=== PATIENT | female | born 1950 | race Caucasian/White ===

== ENCOUNTER 2025-10-26 09:32 | Outpatient (AMB) | payer OTHER, SELFPAY ==
[2025-10-26 09:37] VITALS: BMI 28.0
--- NOTE | 2025-10-26 09:37 | A.PHYSOV_ITS ---
Vital Signs 10/26/25 09:37 Height 5 ft 4 in Weight 163 lb BMI 28.0 Intake Visit Reasons: Follow up after injection 09/01/25 Intake Note: Patient is a 73 year old female in office today for a follow up for lumbar mri results. Conference Coordinator Required: No Allergies adhesive Allergy (Unknown, Verified 10/26/25 09:39) Unknown lactose Allergy (Unknown, Verified 10/26/25 09:39) Unknown monosodium glutamate Allergy (Unknown, Verified 10/26/25 09:39) Unknown Penicillins Allergy (Unknown, Verified 10/26/25 09:39) Unknown HPI Comments Details: History of Present Illness The patient is a 75 year old female presenting for follow-up of chronic low back pain after a recent injection provided minimal relief. She underwent L5-S1 ABENA on 09/01/2025. 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 However, the pain had returned by the following Thursday. The patient's pain is located in the low back and does not radiate into her legs or buttocks. The pain is exacerbated by bending forward and activities such as shoveling snow, prolonged standing, and walking. She has a history of sciatica which was treated by a chiropractor but denies current sciatic symptoms. Her medical history is significant for moderate to severe spinal stenosis and arthritis in her back. She has also had success with a prednisone taper in the past for her pain. She recently underwent successful bilateral cataract surgery and now reports 20/20 vision. Patient would like to consider further treatment options. Pain Description - Location: Low back, with tenderness to palpation more pronounced on the left side. - Radiation: The patient denies any radiation of pain into the legs or buttocks and denies any sciatic symptoms. - Exacerbating factors: Pain is worsened by activity, including shoveling snow, bending forward, prolonged standing, walking, and lifting heavy objects like a turkey. - Relieving factors: Pain is improved with rest. - Prior treatments: A recent central injection provided approximately 50% relief for about three days. - Impact on function: Pain interferes with her ability to stand for long periods to cook, walk for exercise, and go shopping. Results - MRI: The patient's MRI shows moderate to severe spinal stenosis, disc issues, and arthritis. [facility] Social History Alcohol intake: current Alcohol intake frequency: holidays/special occasions only Use of substances other than those prescribed or required for medical reasons: No Current occupational status: retired Review of Systems Narrative Review of Systems - Musculoskeletal: Reports low back pain that is worse with activity and forward flexion. - Neurological: Denies pain radiation to her legs or buttocks. - Eyes: Reports successful bilateral cataract surgery with 20/20 vision. - Denies current eye pain but notes one eye is not as comfortable as the other. Physical Exam Exam Exam: Physical Exam Lumbar Spine: Examination of her lumbar spine, there is no visible swelling or deformity. She is tender to lower lumbar facets. She is otherwise nontender. Full range of motion of the lumbar spine. She does have an increase in pain with facet loading. Special Tests: Lhermittes sign was negative Heel Toe walk is normal Left straight leg raise: Negative Right straight leg raise: Negative Special tests Olga test is negative Ganslen's test is negative SI Joint compression test negative Nitesh test negative Piriformis stretch is negative Lower Extremities: Full range of motion bilateral lower extremities. No calf pain or edema. Neuro: Sensation: Intact to lower extremities bilaterally Strength L2 (Psoas): 5/5 on the left and 5/5 on the right. L3 (Quads): 5/5 on the left and 5/5 on the right. L4 (Ant tibialis): 5/5 on the left and 5/5 on the right. L5 (EHL) 5/5 on the left and 5/5 on the right. S1 (Gastroc): 5/5 on the left and 5/5 on the right. DTR L4: (Patellar) Left 1 Right 1 S1: (Achilles) Left 1 Right 1 Babinski Downgoing No pathologic clonus. No involuntary movement. Vital Signs: BMI result Body Mass Index 28.0 Assessment & Plan Assessment & Plan (1) Lumbar radiculopathy: Code(s): M54.16 - Radiculopathy, lumbar region Category: Medical (2) Vertebrogenic low back pain: Code(s): M54.51 - Vertebrogenic low back pain Category: Medical Plan Pain Management - Analgesia: A recent injection provided only 3 days of greater than 50% pain relief. - She has previously used oral prednisone with good effect. - Adverse Effects: The patient expressed prior concern about cataracts from steroids and understands that oral steroids are not good for her bones. 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 - Affect: Not discussed. - Aberrant Drug Related Behaviors: No aberrant drug-related behaviors were reported or observed. Plan Patient was informed and verbally consented to the use of an ambient scribe for clinic note documentation during this visit. 1. Chronic Low Back Pain The patient's chronic low back pain, characterized by worsening with flexion and lack of response to a central epidural steroid injection, is suspected to be facetogenic in origin from her known lumbar arthritis rather than from her spinal stenosis. The plan is to target the arthritis with bilateral facet injections. I recommend bilateral L4-5, L5-S1 facet injection and she is eager to proceed. Pre-authorization will be obtained, and the patient was advised to contact her insurance to determine her cost-sharing responsibility. For short- term relief, a prednisone taper will be prescribed, with counseling provided that it should only be used a couple of times per year due to risks to bone health. 2. Lumbar Spinal Stenosis The patient has moderate to severe lumbar spinal stenosis, but a recent epidural steroid injection aimed at treating this condition did not provide lasting relief. Given the lack of response, further direct intervention for the stenosis will be deferred, and the treatment strategy will shift to addressing suspected facet arthropathy as the primary pain generator. Discussion Notes I discussed with the patient that her previous injection targeted spinal stenosis and nerve pain, but its limited efficacy suggests that her pain may be more related to arthritis in her facet joints. I explained that because one type of injection did not work, it does not mean that other injections will be ineffective, and it is a matter of finding the right target. I recommended proceeding with bilateral facet joint injections to target the arthritis. I informed her that we would submit for insurance pre-authorization, but she should contact her insurance company to verify her [id number] costs before proceeding with the shots. For more immediate, short-term relief, I offered to prescribe a prednisone taper, which she has used successfully in the past. I counseled her on the risks, specifically that it should only be used a couple of times a year because it is not good for her bones. The patient understood and agreed with this plan. Patient Instructions - I have sent a prescription for prednisone pills to your pharmacy, [facility]. - You can take this medication for short-term pain relief, either now for activities like shopping or closer to [place]. - Do not take this medication more than a couple of times per year, as it can be harmful to your bones. - We will schedule you for a different type of back injection to target your arthritis. - Our office will request approval from your insurance company for this procedure. - Once we have approval, you should call your insurance company to find out how much the procedure will cost you. - You can decide if you want to have the injections after you know the cost. Medications: New prednisone 3 tabs po for 3 days, 2 tabs po for 3 days, 1 tab po for 3 days 20 mg PO DAILY 18 tabs 0RF 9 days M54.16 - Radiculopathy, lumbar region, M54.51 - Vertebrogenic low back pain Coding Level of Care Code Est Pt Level 4 (20318) Diagnoses Lumbar radiculopathy M54.16 Vertebrogenic low back pain M54.51
--- OUTSIDE RECORDS SUMMARY | 2025-10-26 10:45 | XMS_ITS | Clinical Summary ---
Author Organization [address] Address [address] [place] [phone] Phone Care Team Providers Care Fire Tender Name Role Phone Deisi Acosta MD Primary Care Provider [phone] Allergies Active Allergy Reactions Criticality Noted Date Comments Adhesive Rash Low 08/29/2011 Grass Pollen Hives,Runny nose 06/20/2025 Lactose Diarrhea 08/15/2011 Latex Rash Medium 09/05/2025 Monosodium Glutamate Headache,Nausea And Vomiting 02/23/2013 Penicillins Rash 07/23/2011 Medications calcium carbonate (CALCIUM ORAL) CALCIUM 500 MG TAB Take 1 Tablet by mouth daily. 3 Active hydrocortisone (ANUSOL-HC) 2.5 % rectal cream Apply 1 g topically 2 times daily as needed (rectal pain). 2 Active multivit-min/iro n/folic acid/K (ADULTS MULTIVITAMIN ORAL) Take by mouth. Activ e penciclovir (DENAVIR) 1 % cream Apply topically. Apply sparingly to rash 5 times a day 3 Active pregabalin (LYRICA) 50 mg capsule 50 mg bid 4 Active loteprednol (LOTEMAX) 0.5 % ophthalmic suspension 5 Active sodium,potassium ,mag sulfates (Suprep Bowel Prep Kit) 17.5-3.13-1.6 gram recon soln bowel prep kit oral solution Take 177ML by mouth for 2 doses. SEE INSTRUCTIONS PROVIDED BY OFFICE. 1 kit 5 Active alendronate (FOSAMAX) 70 mg tablet Take 1 tablet (70 mg total) by mouth every 7 (seven) days. Take in the morning with a full glass of water, on an empty stomach, and do not take anything else by mouth or lie down for the next 30 min. Active atorvastatin (LIPITOR) 40 mg tablet TAKE 1 TABLET BY MOUTH DAILY 90 tablet Active cetirizine (ZyrTEC) 5 mg chewable tablet Chew 1 (one) time each day. Active Active Problems Problem Noted Date Diagnosed Date Smoking history 09/12/2025 History of lung cancer 01/12/2025 Assessment & Plan (01/12/2025 3:33 PM EST): Ms. Cortez is a 74 y.o. 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 The patient's most recent surveillance chest CT scan performed in December 2024 shows no new, or worsening, pulmonary nodule or thoracic adenopathy to suggest recurrence or new disease. She does have several stable subcentimeter pulmonary nodules measuring up to 5 mm in size. The patient does qualify for ongoing lung cancer screening through our lung cancer screening program given her smoking history. I will refer her to our lung cancer screening program with her SDM visit and LDCT due December 2025. Pulmonary nodules 01/12/2025 Depression with anxiety 03/14/2022 LBBB (left bundle branch block) 02/25/2022 Stage 1 mild COPD by GOLD cl assification (CMS/HCC V24, CMS/HCC V28) 01/30/2022 Trigeminal neuralgia of right side of face 06/07 Osteoporosis 09/16/2011 Fracture, tibia 08/15/2011 Overview (10/10/2024): 06/2011 Hyperlipidemia 08/15/2011 Overview (10/10/2024): Was on a statin in the past Migraine 08/15/2011 Tobacco dependence 08/15/2011 Resolved Problems Problem Noted Date Diagnosed Date Resolved Date Cancer (CMS/HCC V24, CMS/HCC V28) 09/12/2025 09/12/2025 Tubular adenoma 09/19/2022 09/12/2025 Overview (10/10/2024): Colonoscopy 08/2022. 2, repeat in 3 years Encounters Date Type Department Care Team Description 09/12/2025 10:18 AM EDT Anesthesia Event [facility] [address] [place] [phone] Gala Young MD 09/12/2025 9:34 AM EDT - 09/12/2025 11:59 PM EDT Hospital Encounter [facility] [address] [place] [phone] Jerald Graves MD Dickman, Christy L, CRNA Dasilva, John E, MD History of colon polyps Discharge Disposition: Home or Self Care from Last 3 Months Immunizations Immunization Administration Dates Next Due Human Rabies, Chicken Fibrob last Cell Culture, (Rabavert) 04/14/2025,04/10/2025,04/07/2025 Influenza trivalent, with pr eservative (Fluzone; Afluria) 6mo and older 08/15/2011 PPD Test 11/19/2011 Pneumococcal conjugate 13 va lent (Prevnar 13, PCV13) 2mo and older 04/25/2016 Pneumococcal conjugate 20 va lent (Prevnar 20, PCV 20) 2mo and older 07/02/2023 Pneumococcal polysaccharide 23 valent (Pneumovax 23) 2yo and older 04/09/2015 Tdap Tetanus diptheria acell ular pertussis (Boostrix; Adacel) 7yo and older 04/07/2025,02/07/2013 Zoster Live 04/14/2013 Surgical History Surgery Date Site/Laterality Comments HYSTERECTOMY 10/18/2002 PROCEDURE: HISTORICAL HYSTERECTOMY; COMMENT: endometrial hyperplasia, total hyst (Rencus) BUNIONECTOMY 07/18/13, R 1st MTP PROCEDURE: NC CORRJ HLX VLGS BNCTY SESMDC W/DOUBLE OSTEOTOMY; COMMENT: Dr Christian, plus 2nd toe MP & PIP COLONOSCOPY 08/29/2011 PROCEDURE: HISTORICAL COLONOSCOPY; COMMENT: tics and hemorrhoids; repeat in 5 yrs COLONOSCOPY 09/01/2016 PROCEDURE: COLOREC CANC SCRN,COLONOSCPY HI RISK; COMMENT: tics and hemorrhoids; repeat under propofol in 5 yrs CHOLECYSTECTOMY 1990 PROCEDURE: LAPAROSCOPY, CHOLECYSTECTOMY OTHER SURGICAL HISTORY 09/2019 PROCEDURE: NC REMOVAL OF LUNG PNEUMONECTOMY Medical History Medical History Date Comments Trigeminal neuralgia of righ t side of face 06/07/2019 DX:Trigeminal neuralgia of r ight side of face Mass of upper lobe of right lung 08/16/2019 DX:Mass of upper lobe of right lung Primary squamous cell carcin shea of lung, left (CMS/HCC V24, CMS/HCC V28) 08/16/2019 DX:Primary squam ous cell carcinoma of lung, left (HCC) Tubular adenoma 09/19/2022 DX:Tubular adeno ma; COMMENT: Colonoscopy 08/2022. 2, repeat in 3 years Trigeminal neuralgia Family History Medical History Relation Name Comments Colon cancer Brother 1 Heart attack Brother 2 2 Heart attack Father Colon cancer Mother Tuberculosis Mother Heart attack Sister 3 2nd oldest No Known Problems Son Blindness Neg Hx Breast cancer Neg Hx Cataracts Neg Hx Glaucoma Neg Hx Macular degeneration Neg Hx Strabismus Neg Hx Relation Name Status Comments Brother 1 (Age 65) Colon CA Brother 2 2 Alive [place] age 50's Brother 3 Father (Age 54) [place] Mother (Age 86) Colon [place] d x'd age 60's Sister 3 Alive x3, 2 with Hyst , one with [place] age 71 Son Alive born '76, healt hy Social History Tobacco Use Types Packs/Day Years Used Date Smoking Tobacco: Former Cigarettes 1 49 1 970 - 11/23/2018 Smokeless Tobacco: Never Tobacco Cessation:Counseling Given: Not Answered Alcohol Use Standard Drinks/Week Comments Yes 0 (1 standard drink = 0.6 oz pur e alcohol) Interpersonal Safety Answer Date Record ed Physical Abuse Unrecognized value 09/12/2025 Verbal Abuse Unrecognized value 09/12/2025 Comments No Sex and Gender Information Value Date Recorded Sex Assigned at Not on file Legal Sex Female 9:31 PM EST Gender Identity Not on file Sexual Orientation Not on file Obstetrics History Last Filed Vital Signs Vital Sign Reading Time Taken Comments Blood Pressure 135/85 09/12/2025 10:49 AM EDT Pulse 77 09/12/2025 10:49 AM EDT Temperature 36.4 C (97.5 F) 09/12/2025 10:09 AM EDT Respiratory Rate 16 09/12/2025 10:49 AM EDT Oxygen Saturation 98% 09/12/2025 10:49 AM EDT Inhaled Oxygen Concentration - - Weight 70.8 kg (156 lb) 09/12/2025 10:09 AM EDT Height 162.6 cm (5' 4 ) 09/12/2025 10:09 AM EDT Body Mass Index 26.78 09/12/2025 10:09 AM EDT Plan of Treatment Upcoming Encounters Date Type Department Care Team (Late st Contact Info) Description 11/30/2025 12:00 PM EST Office Visit Internal Medicine - [facility] [address], [place] [phone] Deisi Acosta MD [address] [place] [phone] Health Maintenance Due Date Last Done Comments Zoster Vaccines (1 of 2) 06/09/2013 04/14/2013 Lung Cancer Screening (Low Dose CT) 11/01/2022 Social Influencers of Health Screening 11/01/2022 RSV Immunization Adult Patients (1 - 1-dose 75+ series) 2024 Depression Screening 11/23/2024 05/30/2024 Medicare Annual Wellness Visit 05/30/2025 05/30/2024 COVID-19 Vaccine ( season) 2025 09/05/2021, 02/16/2021, 01/26/2021 Influenza Vaccine (#1) 2025 1, 09/10/2007, 11/04/2006 Falls Risk Assessment 09/12/2026 09/12/2025 Cholesterol Screening (Lipid Panel) 06/20/2030 06/20/2025, 06/07/2024, 06/07/2024 Osteoporosis Screening (Bone Density Screening) 10/06/2034 10/06/2024, 02/27/2022, 07/05/2018 DTaP,Tdap,and Td Vaccines (3 - Td or Tdap) 04/07/2035 04/07/2025, 02/07/2013 Hepatitis C Screening Completed 03/14/2018 Pneumococcal Vaccine: 50+ Years Completed 07/02/2023, 04/25/2016, 04/09/2015 Breast Cancer Screening Discontinued 01/11/20, 08/20/2021, 08/16/2020, Additional history exists Colorectal Cancer Screening: Colonoscopy Discontinued 09/12/2025, 09/16/2022, 09/01/2016 HIB Vaccines Aged Out No longer eligi ble based on patient's age to complete this topic HPV Vaccines Aged Out No longer eligi ble based on patient's age to complete this topic Hepatitis A Vaccines Aged Out No long er eligible based on patient's age to complete this topic Hepatitis B Vaccines Aged Out No long er eligible based on patient's age to complete this topic IPV Vaccines Aged Out No longer eligi ble based on patient's age to complete this topic MMR Vaccines Aged Out No longer eligi ble based on patient's age to complete this topic Meningococcal ACWY Vaccine Aged Out N o longer eligible based on patient's age to complete this topic Meningococcal B Vaccine Aged Out No l onger eligible based on patient's age to complete this topic RSV Immunization Patients Under 20 months Aged Out No longer eligible based on patient's age to complete this topic Varicella Vaccines Aged Out No longer eligible based on patient's age to complete this topic Goals Goal Patient Goal Type Associated Problems Recent Progress Patient-Stated? 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 Pt will be independent with HEP for progression of gains made in skilled physical therapy. Autogenerated Goal Care Plan Autogenerated Problem No [place] Procedures Procedure Name Priority Date/Time Associated Diagnosis Comments COLONOSCOPY Routine 09/12/2025 10:28 AM EDT History of colon polyps LIPID PANEL WITH REFLEX TO DIRECT LDL Routine 06/20/2025 12:26 PM EDT Hyperlipidemia, unspecified hyperlipidemia type MG MAMMO DIGITAL SCREENING W MINA BILAT Routine 01/11/2025 10:59 AM EST Encounter for screening mammogram for malignant neoplasm of breast BD BONE DENSITY DXA AXIAL SKELETON Routine 10/06/2024 10:54 AM EST Screening for osteoporosis DEPRESSION SCREENING Routine 05/30/2024 HEPATITIS C SCREENING Routine 03/14/2018 from Last 3 Months or Most Recently Relevant to Health Maintenance Results * COLONOSCOPY Anesthesia - MAC; [facility] END[facility]COPY (09/12/2025 10:28 AM EDT) Anatomical Region Laterality Modality Endoscopy 09/12/2025 10:1 9 AM EDT Impressions 09/12/2025 10:28 AM EDT - Preparation of the colon was poor. - Stool in the entire examined colon. - No specimens collected. Recommendation: - Discharge patient to home. - Repeat colonoscopy at the next available appointment because the bowel preparation was suboptimal. Narrative 09/12/2025 10:28 AM EDT [facility] Patient Name: Joby Cortez Procedure Date: 09/12/2025 10:19 AM Date of : 1950 Age: 74 Gender: Female Note Status: Finalized Attending MD: Jerald Graves MD, Procedure Date No Time: 09/12/2025 Procedure: Colonoscopy Indications: High risk colon cancer surveillance: Personal history of colonic polyps Providers: Jerald Graves MD Referring MD: Jerald Graves MD Medicines: Monitored Anesthesia Care Complications: No immediate complications. Estimated blood loss: None. Estimated Blood Loss: Estimated blood loss: none. Procedure: Pre-Anesthesia Assessment: - Prior to the procedure, a History and Physical was performed, and patient medications and allergies were reviewed. The patient is competent. The risks and benefits of the procedure and the sedation options and risks were discussed with the patient. All questions were answered and informed consent was obtained. Patient identification and proposed procedure were verified by the physician, the nurse, the core java engineer and the environmental sampling technician in the pre-procedure area in the endoscopy suite. Mental Status Examination: alert and oriented. Airway Examination: normal oropharyngeal airway and neck mobility. Respiratory Examination: clear to auscultation. CV Examination: normal. Prophylactic Antibiotics: The patient does not require prophylactic antibiotics. Prior Anticoagulants: The patient has taken no anticoagulant or antiplatelet agents. ASA Grade Assessment: III - A patient with severe systemic disease. After reviewing the risks and benefits, the patient was deemed in satisfactory condition to undergo the procedure. The anesthesia plan was to use monitored anesthesia care (MAC). Immediately prior to administration of medications, the patient was re-assessed for adequacy to receive sedatives. The heart rate, respiratory rate, oxygen saturations, blood pressure, adequacy of pulmonary ventilation, and response to care were monitored throughout the procedure. The physical status of the patient was re-assessed after the procedure. After I obtained informed consent, the scope was passed under direct vision. Throughout the procedure, the patient's blood pressure, pulse, and oxygen saturations were monitored continuously. The Colonoscope was introduced through the anus with the intention of advancing to the cecum. The scope was advanced to the sigmoid colon before the procedure was aborted. Medications were given. The colonoscopy was performed without difficulty. The patient tolerated the procedure well. The quality of the bowel preparation was poor. Findings: The perianal and digital rectal examinations were normal. A moderate amount of solid stool was found in the entire colon, precluding visualization. Procedure Code(s): --- Professional --- G0105, 53, Colorectal cancer screening; colonoscopy on individual at high risk Diagnosis Code(s): --- Professional --- Z86.010, Personal history of colonic polyps CPT copyright 2020 [employer]. All rights reserved. The codes documented in this report are preliminary and upon booth supervisor review may be revised to meet current compliance requirements. Jerald Graves MD 09/12/2025 10:28:01 AM This report has been signed electronically.Jerald Graves MD Number of Addenda: 0 Note Initiated On: 09/12/2025 10:19 AM Scope In: 10:23:58 AM Scope Out: 10:26:36 AM Endoscopy Department at [facility] - [address] [place] [phone] Procedure Note Jerald Graves MD - 09/12/2025 [facility] Patient Name: Joby Cortez Procedure Date: 09/12/2025 10:19 AM Date of : 1950 Age: 74 Gender: Female Note Status: Finalized Attending MD: Jerald Graves MD, Procedure Date No Time: 09/12/2025 Procedure: Colonoscopy Indications: High risk colon cancer surveillance: Personalhistory of colonic polyps Providers: Jerald Graves MD Referring MD: Jerald Graves MD Medicines: Monitored Anesthesia Care Complications: No immediate complications. Estimated blood loss:None. Estimated Blood Loss: Estimated blood loss: none. Procedure: Pre-Anesthesia Assessment: - Prior to the procedure, a History and Physicalwas performed, and patient medications and allergieswere reviewed. The patient is competent. The risks and benefits of the procedure and the sedation optionsand risks were discussed with the patient. Allquestions were answered and informed consent was obtained. Patient identification and proposed procedure were verified by the physician, the nurse, theanesthetist and the environmental sampling technician in the pre-procedure area in the endoscopy suite. Mental Status Examination: alertand oriented. Airway Examination: normal oropharyngeal airway and neck mobility. Respiratory Examination: clear to auscultation. CV Examination: normal. Prophylactic Antibiotics: The patient does notrequire prophylactic antibiotics. Prior Anticoagulants: The patient has taken no anticoagulant or antiplatelet agents. ASA Grade Assessment: III - A patient with severe systemic disease. After reviewing the risksand benefits, the patient was deemed in satisfactory condition to undergo the procedure. The anesthesia plan was to use monitored anesthesia care (MAC). Immediately prior to administration of medications, the patient was re-assessed for adequacy to receive sedatives. The heart rate, respiratory rate, oxygen saturations, blood pressure, adequacy of pulmonary ventilation, and response to care were monitored throughout the procedure. The physical status ofthe patient was re-assessed after the procedure. After I obtained informed consent, the scope was passed under direct vision. Throughout theprocedure, the patient's blood pressure, pulse, and oxygen saturations were monitored continuously. The Colonoscope was introduced through the anus withthe intention of advancing to the cecum. The scope was advanced to the sigmoid colon before the procedurewas aborted. Medications were given. The colonoscopywas performed without difficulty. The patient tolerated the procedure well. The quality of the bowel preparation was poor. Findings: The perianal and digital rectal examinations were normal. A moderate amount of solid stool was found in the entire colon, precluding visualization. Procedure Code(s): --- Professional --- G0105, 53, Colorectal cancer screening; colonoscopyon individual at high risk Diagnosis Code(s): --- Professional --- Z86.010, Personal history of colonic polyps CPT copyright 2020 [employer]. All rights reserved. The codes documented in this report are preliminary and upon booth supervisor reviewmay be revised to meet current compliance requirements. Jerald Graves MD 09/12/2025 10:28:01 AM This report has been signed electronically.Jerald Graves MD Number of Addenda: 0 Note Initiated On: 09/12/2025 10:19 AM Scope In: 10:23:58 AM Scope Out: 10:26:36 AM Endoscopy Department at [facility] - [address] [place] [phone] IMPRESSION: - Preparation of the colon was poor. - Stool in the entire examined colon. - No specimens collected. Recommendation: - Discharge patient to home. - Repeat colonoscopy at the next availableappointment because the bowel preparation was suboptimal. us Jerald Graves MD GI~PROCEDURE ORDERABLES Fin al Result * Lipid panel with reflex to direct LDL (06/20/2025 12:26 PM EDT) Cholesterol 158 0 - 200 mg/dL LAB CHEMISTRY METHOD 06/20/2025 4:54 PM EDT [facility] Triglycerides 85 0 - 150 mg/dL LAB CHEMISTRY METHOD 06/20/2025 4:54 PM EDT [facility] HDL 76 >=40 mg/dL LAB CHEMISTRY METHOD 06/20/2025 4:54 PM EDT [facility] LDL Calculated 65 0 - 100 mg/dL LAB CHEMISTRY METHOD 06/20/2025 4:54 PM EDT [facility] VLDL Cholesterol Jaden 17 mg/dL LAB CHEMISTRY METHOD 06/20/2025 4:54 PM EDT [facility] Non HDL Chol. (LDL+VLDL) 82 <145 mg/dL LAB CHEMISTRY METHOD 06/20/2025 4:54 PM EDT [facility] Chol/HDL Ratio 2.1 0.0 - 4.4 LAB CHEMISTRY METHOD 06/20/2025 4:54 PM EDT [facility] Blood Venous blood specimen / Unknown Venipuncture / Unknown 06/20/2025 12:26 PM EDT 06/20/2025 12:26 PM EDT Blair Fischer TESTING ENGINEER LAB BLOOD ORDERABLES Final Res ult [facility] [address] [place] [address], * MG Mammo Digital Screening w Mina bilat (01/11/2025 10:59 AM EST) Anatomical Region Laterality Modality Breast Bilateral Mammography 01/11/2025 3:36 PM EST Impressions 01/11/2025 3:37 PM EST Stable mammographic appearance of the breasts. No evidence of malignancy is seen. A negative mammogram in the presence of a clinically suspicious palpable abnormality does not preclude the possibility of malignancy or alter the indications for biopsy. BI-RADS CATEGORY: 2 - BENIGN RECOMMENDATION: Screening bilateral mammogram is recommended in 1 year. Mammo Location: [facility], [address] [place], [place], [address], . -------- FINAL REPORT -------- Dictated By: Marlin Kahn Dictated Date: 01/11/2025 15:36 ET Assigned Physician: Marlin Kahn Reviewed and Electronically Signed By: Marlin Kahn Signed Date: 01/11/2025 15:37 ET Workstation ID: [id number] Transcribed By: Self Edit Transcribed Date: 01/11/2025 15:36 ET Narrative 01/11/2025 3:37 PM EST HISTORY: Screening. COMPARISON: 08/20/21, 08/16/20, 03/02/19, 03/01/18 ([place], [place]) TECHNIQUE: Bilateral digital breast tomosynthesis was performed in the CC and MLO projections. Computer aided detection with [employer] AI 3D 3.1 was employed. BREAST DENSITY: B - There are scattered areas of fibroglandular density. FINDINGS: No suspicious masses, grouped microcalcifications, or areas of architectural distortion are seen. There are rare benign calcifications. The skin and vascularity are unremarkable. Procedure Note Marlin Kahn MD - 01/11/2025 HISTORY: Screening. COMPARISON: 08/20/21, 08/16/20, 03/02/19, 03/01/18 ([facility], [place], [place]) TECHNIQUE: Bilateral digital breast tomosynthesis was performed in the CCand MLO projections. Computer aided detection with iCAD Copybar AI 3D 3.1was employed. BREAST DENSITY: B - There are scattered areas of fibroglandular density. FINDINGS: No suspicious masses, grouped microcalcifications, or areas ofarchitectural distortion are seen. There are rare benign calcifications.The skin and vascularity are unremarkable. IMPRESSION: Stable mammographic appearance of the breasts. No evidence of malignancyis seen. A negative mammogram in the presence of a clinically suspicious palpableabnormality does not preclude the possibility of malignancy or alter theindications for biopsy. BI-RADS CATEGORY: 2 - BENIGN RECOMMENDATION: Screening bilateral mammogram is recommended in 1 year. Mammo Location: [facility], [address] [place] [address], [id number], . -------- FINAL REPORT -------- Dictated By: Marlin Kahn Dictated Date: 01/11/2025 15:36 ET Assigned Physician: Marlin Kahn Reviewed and Electronically Signed By: Marlin Kahn Signed Date: 01/11/2025 15:37 ET Workstation ID: [id number] Transcribed By: Self Edit Transcribed Date: 01/11/2025 15:36 ET us Jonatan Honeycutt MD IMG BI PROCEDURES Final R esult * BD Bone Density DXA Axial Skeleton (10/06/2024 10:54 AM EST) Anatomical Region Laterality Modality Wrist, Hip, L-spine Bone Densito metry 10/06/2024 11:3 6 AM EST Impressions 10/06/2024 11:39 AM EST Osteoporosis by WHO criteria. The [facility] Department of Internal Medicine recommends using National Osteoporosis Foundation (NOF) guidelines in treatment decisions related to osteoporosis. NOF guidelines suggest considering treatment for postmenopausal women and men aged 50 or older presenting with the following: History of hip or vertebral fracture. T-score = -2.5 (DXA) at the femoral neck, total hip, or spine, after appropriate evaluation to exclude secondary causes. Low bone mass (T-score between -1.0 and -2.5 at the femoral neck or spine) AND a 10-year probability of a hip fracture = 3% OR a 10-year probability of a major osteoporosis-related fracture = 20% based on the [place]-adapted WHO algorithm Please note that all treatment decisions require clinical judgment and consideration of individual patient factors, including patient preferences, co-morbidities, previous drug use, risk factors not captured in the FRAX model (e.g., frailty, falls, vitamin D deficiency, increased bone turnover, interval significant decline in bone density) and possible under- or over-estimation of fracture risk by FRAX. Optional alternative screening schedule based on gerardo Dickson., [facility] December 11, 2011 for patients with osteopenia (based on hip BMD T-score) is as follows: * advanced osteopenia (T scores -2.00 to -2.49), BMD testing every year * moderate osteopenia (T scores -1.50 to -1.99), BMD testing every 5 years mild osteopenia or normal BMD (T scores -1.50 and higher), BMD testing every 15 years -------- FINAL REPORT -------- Dictated By: Gisselle Lang Dictated Date: 10/06/2024 11:36 ET Assigned Physician: Gisselle Lang Reviewed and Electronically Signed By: Gisselle Lang Signed Date: 10/06/2024 11:39 ET Workstation ID: [id number] Transcribed By: Self Edit Transcribed Date: 10/06/2024 11:36 ET Narrative 10/06/2024 11:39 AM EST BONE DENSITY SCAN (DEXA): FINDINGS: Lumbar Spine T-score is -0.8. (SD relative to 20-29 y/o adult) Z-score is 1.6. (SD relative to age matched peers) This is considered normal by WHO criteria. Left Hip T-score is -2.6. Z-score is -0.5. This is considered osteoporosis by WHO criteria. Comparison exam(s): 02/27/2022. 8.6% increase in lumbar spine bone mineral density which is statistically significant at the 95% confidence level. No statistically significant change in left hip bone mineral density. Procedure Note Gisselle Lang MD - 10/06/2024 BONE DENSITY SCAN (DEXA): FINDINGS: Lumbar Spine T-score is -0.8. (SD relative to 20-29 y/o adult) Z-score is 1.6. (SD relative to age matched peers) This is considered normal by WHO criteria. Left Hip T-score is -2.6. Z-score is -0.5. This is considered osteoporosis by WHO criteria. Comparison exam(s): 02/27/2022. 8.6% increase in lumbar spine bonemineral density which is statistically significant at the 95% confidencelevel. No statistically significant change in left hip bone mineraldensity. IMPRESSION: Osteoporosis by WHO criteria. The [facility] Department of Internal Medicine recommendsusing National Osteoporosis Foundation (NOF) guidelines in treatmentdecisions related to osteoporosis. NOF guidelines suggest consideringtreatment for postmenopausal women and men aged 50 or older presentingwith the following: History of hip or vertebral fracture. T-score = -2.5 (DXA) at the femoral neck, total hip, or spine, afterappropriate evaluation to exclude secondary causes. Low bone mass (T-score between -1.0 and -2.5 at the femoral neck or spine)AND a 10-year probability of a hip fracture = 3% OR a 10-year probabilityof a major osteoporosis-related fracture = 20% based on the [place]-adapted WHOalgorithm Please note that all treatment decisions require clinical judgment andconsideration of individual patient factors, including patientpreferences, co-morbidities, previous drug use, risk factors not capturedin the FRAX model (e.g., frailty, falls, vitamin D deficiency, increasedbone turnover, interval significant decline in bone density) and possibleunder- or over-estimation of fracture risk by FRAX. Optional alternative screening schedule based on gerardo Dickson., [facility] for patients with osteopenia (based on hip BMD T-score)is as follows: * advanced osteopenia (T scores -2.00 to -2.49), BMD testing every year * moderate osteopenia (T scores -1.50 to -1.99), BMD testing every 5years mild osteopenia or normal BMD (T scores -1.50 and higher), BMD testingevery 15 years -------- FINAL REPORT -------- Dictated By: Gisselle Lang Dictated Date: 10/06/2024 11:36 ET Assigned Physician: Gisselle Lang Reviewed and Electronically Signed By: Gisselle Lang Signed Date: 10/06/2024 11:39 ET Workstation ID: [id number] Transcribed By: Self Edit Transcribed Date: 10/06/2024 11:36 ET Jonatan Honeycutt MD IMG DXA PROCEDURES Final Result * Depression Screening (05/30/2024) Pathologist [facility] Depression Screening Abstracted Historical Provider HEALTH MAINTENANCE Final Result * Hepatitis C Screening (03/14/2018) Pathologist [facility] Hepatitis C Screening Abstracted Historical Provider HEALTH MAINTENANCE Final Result from Last 3 Months or Most Recently Relevant to Health Maintenance Additional Health Concerns Active Problems Noted Date Diagnosed Date 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 Insurance [employer] Advance Directives Documents on File Type Date Recorded 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 Health Care Decision (hx) 10/19/2019 AD FITZGERALD DIRECTIVE Health Care Decision (hx) 10/19/2019 AD FITZGERALD DIRECTIVE Health Care Decision (hx) 10/19/2019 AD FITZGERALD DIRECTIVE Health Care Decision (hx) 10/19/2019 AD FITZGERALD DIRECTIVE Health Care Decision (hx) 10/19/2019 AD FITZGERALD DIRECTIVE Health Care Decision (hx) 10/19/2019 AD FITZGERALD DIRECTIVE Health Care Decision (hx) 10/19/2019 AD FITZGERALD DIRECTIVE Health Care Decision (hx) 10/19/2019 AD FITZGERALD DIRECTIVE Health Care Decision (hx) 10/19/2019 AD FITZGERALD DIRECTIVE Health Care Decision (hx) 10/19/2019 AD FITZGERALD DIRECTIVE Health Care Decision (hx) 10/19/2019 AD FITZGERALD DIRECTIVE Health Care Decision (hx) 10/19/2019 AD FITZGERALD DIRECTIVE Health Care Decision (hx) 10/19/2019 AD FITZGERALD DIRECTIVE Care Teams Fire Tender Relationship Specialty Start Date End Date Deisi Acosta MD [address] [place] [id number] PCP - General Internal Medicine 06/19/25
--- OUTSIDE RECORDS SUMMARY | 2025-10-26 10:45 | XMS_ITS ---
Author Name [facility] Organization Unknown Care Team Organization Name Specialty Phone Email Start Date End Da te [facility] Jonatan Honeycutt Primary Care 08/26/2023 07/11/2024 [facility] Beka Guillen Primary Care 09/30/2022 07/11/20 24
== END 2025-10-26 09:59 | disposition home or self-care (01) ==
LOC: HO.HPHYS 09:32
PROVIDERS: PCP Internal Medicine; Visit Provider Physician Assistant
DX: M54.16 Radiculopathy, lumbar region (principal); M54.51 Vertebrogenic low back pain
CPT/HCPCS: 99214